=== PATIENT | male | born 1955 | race Two or more races ===

== ENCOUNTER 2021-02-17 07:02 | Day surgery (SDC) | payer OTHER ==
[~2021-02-17 07:02] MED LIST: ATENOLOL-CHLOR1 EACH PO
[2021-02-17] MEDS ORDERED: ULTRAM50 MG PO (09:44)
[2021-02-17] MEDS ORDERED: TYLENOL ARTHRI650 MG PO (09:44)
[2021-02-17] MEDS ORDERED: MIRALAX17 GM PO (09:44)
[2021-02-17] MEDS ORDERED: NEURONTIN300 MG PO (09:44)
== END 2021-02-17 15:30 | disposition home or self-care (01) ==
LOC: CIR.AMB 07:02
PROVIDERS: ATTEND Surgery
DX: K40.90 Unilateral inguinal hernia, without obstruction or gangrene, not specified as recurrent (principal); K42.9 Umbilical hernia without obstruction or gangrene; Z20.822 Contact with and (suspected) exposure to COVID-19

== ENCOUNTER 2021-08-20 12:40 | Emergency (ER) | payer OTHER ==
[~2021-08-20] VITALS: Ht 177.8 cm; Wt 97.1 kg
[~2021-08-20 12:40] MED LIST changes: +MIRALAX17 GM PO; +NEURONTIN300 MG PO; +TYLENOL ARTHRI650 MG PO; +ULTRAM50 MG PO
[2021-08-20] MEDS ORDERED: CHILDREN'S ASPI81 MG (13:23)
[2021-08-20] MEDS ORDERED: ANALPRAM HC 2.530 GM RECTAL (15:04)
== END 2021-08-20 15:21 | disposition home or self-care (01) ==
LOC: ER 12:40
DX: K64.8 Other hemorrhoids (principal)

== ENCOUNTER 2022-08-08 14:09 | Outpatient (CLI) | payer OTHER ==
[~2022-08-08 14:09] MED LIST changes: +ANALPRAM HC 2.530 GM RECTAL; +CHILDREN'S ASPI81 MG
== END 2022-08-08 14:14 | disposition home or self-care (01) ==
LOC: RAD 14:09
PROVIDERS: ATTEND Internal Medicine
DX: J44.0 Chronic obstructive pulmonary disease with (acute) lower respiratory infection (principal)

== ENCOUNTER 2022-12-28 08:45 | Outpatient (CLI) | payer OTHER | END 2022-12-28 08:50 | disposition home or self-care (01) | LOC: NUCLEAR 08:45 | PROVIDERS: ATTEND Internal Medicine | DX: I10 Essential (primary) hypertension (principal); Z13.6 Encounter for screening for cardiovascular disorders ==